=== PATIENT | female | born 1950 | race Caucasian/White ===

== ENCOUNTER 2024-03-09 14:14 | Emergency (ER) | payer MEDICARE, OTHER, SELFPAY ==
[2024-03-09 14:19] VITALS: BP 92/49
--- NOTE | 2024-03-09 15:54 | ED.MUSCINJ ---
HPI-Injury
General
Chief Complaint: Fall
Source: patient
Exam Limitations: none
Time Seen by Provider: 03/09/24 15:21
Nursing documentation reviewed up to this point in time: agreed with
History of Present Illness-Injury
Initial Injury comments:
73 yo female was adjusting her 's stair lift about 8 steps up yesterday, when she lost her balance and fell, striking head, glasses hit nose, hit left lower leg and great toe.
She has mild headache, no LOC, has mild posterior neck soreness, main concern is swelling, bruising and pain left lower leg and big toe. Not anticoagulated
Past History
Past History
ED Past Medical History: GERD and Psychiatric (anxiety)
ED Past Surgical History: and Gynecological
Social History
Tobacco: Non-smoker
Alcohol: Daily (wine)
Personal:
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
Review of Systems
Review of Systems
Allergies reviewed?: Yes
All Other Systems: ROS reviewed and negative except as documented in HPI and ROS
Respiratory: Denies trouble breathing
Cardiac: Denies chest pain
ABD/GI: Denies abdominal pain or nausea
Musculoskeletal: Reports neck pain (back ofneck is 'sore', pain left lower leg and big toe)
Skin: Reports other (bruising left lower leg)
Neurological: Reports headache; Denies dizzy, weakness or numbness
Phy Exam
Physical Exam
Physical Exam:
GENERAL: No acute distress. A&Ox3.
CONSTITUTIONAL: Afebrile.
EYES: PERRL, conjunctivae normal
Neck: Supple
ENMT: moist mucus membranes, no nasal bone tenderness, no notable facial swelling, tiny abrasion left bridge of nose from glasses.
RESPIRATORY: Regular respirations, nonlabored, lungs clear.
CARDIOVASCULAR: Regular rate and rhythm, no murmurs, no rubs.
GI: Soft, nontender, normal BS
MUSCULOSKELETAL: No spinal bony tenderness, mild posterior paracervical tenderness. Full ROM of neck. Tender and mildly swollen left lower leg anteriorly with mild ecchymosis. R great toe tender with mild ecchymosis. ROM of toe intact. Moves with
ease. Well perfused.
SKIN: Warm, dry, pink
PSYCH: Normal mood and affect. Well kept, interactive and appropriate
NEUROLOGIC: Awake, alert and oriented. No focal neurological deficits
Injury Course
Orders/Labs/Results
Orders:
Orders
03/09/24 15:43
CR Leg Tibia/fibula Left 2 Vw Urgent
Comment:
Reason For Exam: pain after fall
CR Toe(s) Min 2 Vw Left Urgent
Comment:
Reason For Exam: pain after fall
Indicate Which Toe:: Great
03/09/24 15:54
Acetaminophen [Tylenol] 1,000 mg PO NOW STA
MDM/Problems Addressed
Differential Diagnosis Includes:
contusion vs fracture toe and tib/fib
no sign of concussion
MDM/Problems Addressed:
73 yo female was adjusting her 's stair lift about 8 steps up yesterday, when she lost her balance and fell, striking head, glasses hit nose, hit left lower leg and great toe.
She has mild headache, no LOC, has mild posterior neck soreness, main concern is swelling, bruising and pain left lower leg and big toe. Not anticoagulated.
No significant headache, no LOC, no neurological deficits, not anticoagulated no sign of concussion, no indication for head CT
Xray left tib/fib read by me: no fracture
Xray left great toe read by me: no fx
Pt ambulated out with normal gait
*Critical Care Note
Total Time (30-74mins, 75-104mins- exclusive of procedures): Not Applicable
ED Attending Note
-
Portions of this chart may have been created with voice recognition software.� Occasional wrong word or��sound alike� substitutions may have occurred due to the inherent limitations of voice recognition software.
Discharge Plan
Departure
Patient Disposition: Home (Routine Discharge)
Date of Disposition: 03/09/24
Time of Disposition: 16:40
Patient with high blood pressure during this ER visit?: No
Condition: Good
Discharge Problem:
Fall down stairs, Contusion of left lower leg, Sprain of left great toe, Minor head injury without loss of consciousness
Instructions: Head Injury in Adults (DC), Contusion (DC), Toe Injury
Prescriptions:
No Action
multivitamin [Xnx-Zqozsl-Xemvw] 1 EACH tablet
1 ea PO DAILY
aspirin 81 MG tablet,chewable
81 mg PO DAILY
Zantac
1 dose PO DAILY
Referrals:
Regina Batres MD [Family Provider] - As needed
Activity Restrictions/Additional Instructions:
As we discussed, your x-ray showed nothing is broken.
Tylenol or ibuprofen as needed for pain.
Interventions
Interventions:
*Risk Screen - Suicide Last Done: 03/09/24 14:19
*General Assessment Last Done: 03/09/24 14:19
*Neglect/Abuse Screening Last Done: 03/09/24 14:19
*Nursing Disposition Last Done: 03/09/24 16:51
ED-Musculoskeletal Assessment Last Done: 03/09/24 14:43
ED- Neurological Assessment Last Done: 03/09/24 14:43
ED-Skin Assessment Last Done: 03/09/24 14:43
Discharge Date and Time
Discharge Date/Time: 03/09/24 16:52
Print Language: SINGAPOREAN
[2024-03-09] MEDS: TYLENOL 1000 MG PO (16:00)
[2024-03-09 16:51] VITALS: BP 138/71
== END 2024-03-09 16:52 | disposition home or self-care (01) ==
LOC: EMR 14:14
PROVIDERS: EMERGENCY PHYSICIAN Emergency Medicine; FAMILY PHYSICIAN Family Medicine
DX: S93.502A Unspecified sprain of left great toe, initial encounter (principal); S80.12XA Contusion of left lower leg, initial encounter; S90.111A Contusion of right great toe without damage to nail, initial encounter; S09.90XA Unspecified injury of head, initial encounter; R51.9 Headache, unspecified; M54.2 Cervicalgia; M79.89 Other specified soft tissue disorders; W10.9XXA Fall (on) (from) unspecified stairs and steps, initial encounter; K21.9 Gastro-esophageal reflux disease without esophagitis; F41.9 Anxiety disorder, unspecified
CPT/HCPCS: 99284; 73590; 73660

== ENCOUNTER 2024-03-20 13:35 | Emergency (ER) | payer MEDICARE, OTHER, SELFPAY ==
[2024-03-20 13:39] VITALS: BP 146/73
[2024-03-20] MEDS: TYLENOL 1000 MG PO (14:41)
--- NOTE | 2024-03-20 14:58 | ED.GENMED ---
History of Present Illness
<Kayc Jefferson PA-C - Last Filed: 03/21/24 14:33>
General
Chief Complaint: Musculo-Skeletal Complaint
Source: patient
Exam Limitations: none
Time Seen by Provider: 03/20/24 14:01
Nursing documentation reviewed up to this point in time: agreed with
History of Present Illness
History of Present Illness:
Patient is a 74-year-old female presenting 12 days following mechanical fall with persistent pain and swelling in her left lower leg. Patient states swelling of left anterior lower leg has started to decrease although pain has worsened and she
noticed redness of the skin prompting her visit to the emergency department. In addition�patient reports increasing swelling of her left foot. Patient denies any fevers. Patient has been able to ambulate with some pain. Patient has been taking
Tylenol/ibuprofen as directed by her primary care.
Patient denies any headaches, nausea/vomiting, visual changes, dizziness, neck pain.
Patient was seen in the emergency department here 11 days ago with negative x-ray of left tibia/fibula and left great toe.
Past History
<Kacy Jefferson PA-C - Last Filed: 03/21/24 14:33>
Past History
ED Past Medical History: GERD and Psychiatric (anxiety)
ED Past Surgical History: and Gynecological
Social History
Tobacco: Non-smoker
Alcohol: Daily (wine)
Personal:
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
Review of Systems
<Kacy Jefferson PA-C - Last Filed: 03/21/24 14:33>
Review of Systems
Allergies reviewed?: Yes
All Other Systems: ROS reviewed and negative except as documented in HPI and ROS
Phy Exam
<Kacy Jefferson PA-C - Last Filed: 03/21/24 14:33>
Physical Exam
Physical Exam:
VITALS: Mildly hypertensive, otherwise vital signs stable. Afebrile
GENERAL: Patient is well appearing, no acute distress. Nontoxic appearing
SKIN: Swelling of left anterior lower leg with overlying erythema and warmth. Edema of left foot with healing ecchymoses
HEENT: atraumatic, extraocular muscles intact, no signs of entrapment, dentition intact, no other obvious trauma
NECK: no midline tenderness, normal range of motion, no other obvious trauma
BACK: no midline tenderness, no other obvious trauma
BACK: no midline tenderness, no other obvious trauma
CHEST: no tenderness, no flail segment, no subcutaneous emphysema, no other obvious trauma
LUNGS: clear to auscultation bilaterally
CARDIOVASCULAR: regular rate and rhythm
ABDOMEN: soft, non-tender, no masses, no other obvious trauma
PELVIS: stable, no obvious injury
EXTREMITIES: Localized area of edema with overlying erythema, warm of left proximal anterior lower leg. Bony tenderness of left distal tibia. 1+ pitting edema of left foot with scattered healing ecchymoses. No tenderness at base of left fifth
metatarsal, midfoot, calcaneus. Left Achilles tendon intact. Left lower extremity neurovascular intact. Left knee and left hip atraumatic and nontender with full range of motion.
NEUROLOGIC: awake, alert x 3, no focal deficits
Course
<Kacy Jefferson PA-C - Last Filed: 03/21/24 14:33>
Orders/Labs/Results
Orders:
Orders
03/20/24 14:31
Acetaminophen [Tylenol] 1,000 mg PO NOW STA
Foot, Left 3 View [CR Foot - Left Min 3 Views] Urgent
Comment:
Reason For Exam: Left foot swelling/pain 10 days s/p fall
US Legs, Left [US Periph Venous LOWER Ext LT] Urgent
Comment:
Reason For Exam: LLE swelling, hematoma left anterior leg
03/20/24 15:02
Non Vasc Lower Ext Left US [US Non Vasc LOWER Ext LT] Urgent
Comment: hematoma vs abscess
Reason For Exam: Lower extremity swelling s/p fall
03/20/24 18:06
Cephalexin Monohydrate [Keflex] 500 mg PO NOW STA
Vital Signs
Initial and Last Documented VS:
Initial Vital Signs
Temp Pulse Resp BP Pulse Ox
97.8 F 75 16 146/73 100
03/20/24 13:39 03/20/24 13:39 03/20/24 13:39 03/20/24 13:39 03/20/24 13:39
Last Documented Vital Signs
Temp Pulse Resp BP Pulse Ox
97.8 F 68 16 127/68 99
03/20/24 13:39 03/20/24 18:12 03/20/24 13:39 03/20/24 18:12 03/20/24 18:12
<Anum Contreras MD - Last Filed: 03/20/24 17:18>
Orders/Labs/Results
Orders:
Orders
03/20/24 14:31
Acetaminophen [Tylenol] 1,000 mg PO NOW STA
Foot, Left 3 View [CR Foot - Left Min 3 Views] Urgent
Comment:
Reason For Exam: Left foot swelling/pain 10 days s/p fall
US Legs, Left [US Periph Venous LOWER Ext LT] Urgent
Comment:
Reason For Exam: LLE swelling, hematoma left anterior leg
03/20/24 15:02
Non Vasc Lower Ext Left US [US Non Vasc LOWER Ext LT] Urgent
Comment: hematoma vs abscess
Reason For Exam: Lower extremity swelling s/p fall
03/20/24 18:06
Cephalexin Monohydrate [Keflex] 500 mg PO NOW STA
Vital Signs
Initial and Last Documented VS:
Initial Vital Signs
Temp Pulse Resp BP Pulse Ox
97.8 F 75 16 146/73 100
03/20/24 13:39 03/20/24 13:39 03/20/24 13:39 03/20/24 13:39 03/20/24 13:39
Last Documented Vital Signs
Temp Pulse Resp BP Pulse Ox
97.8 F 68 16 127/68 99
03/20/24 13:39 03/20/24 18:12 03/20/24 13:39 03/20/24 18:12 03/20/24 18:12
<Kacy Jefferson PA-C - Last Filed: 03/21/24 14:33>
MDM/Problems Addressed
Differential Diagnosis Includes:
Not limited to: Foot fracture, foot sprain, ankle sprain, hematoma, infected hematoma, abscess, cellulitis, DVT, etc.
MDM/Problems Addressed:
74 year old female presenting with persisting swelling of left anterior lower leg 12 days following mechanical fall. Xrays of left tib/fib and left great toe negative for fracture at that time. No fevers or chills. Did notice worsening redness and
warmth of left anterior lower leg although reports swelling improving. Vitals stable. Patient is afebrile. Exam as above. Suspect likely hematoma although concern for abscess due to overlying erythema and warmth. Possible component of cellulitis.
Given degree of bruising of left foot will obtain xray of left foot to rule out fracture. Will check soft tissue US of left leg and venous US to r/o DVT.
Xray of left foot shows no fracture. Venous US negative for DVT of left lower extremity. Soft tissue US shows findings consistent with hematoma, less likely abscess. Following shared decision making with patient needle aspiration was performed which
showed dark red blood. No pus or purulent material to suggest abscess. High suspicion for hematoma secondary to trauma. Bulky compression wrap applied in ED. Recommend compression, elevation, and ice. Will start course of abx to cover for possible
developing cellulitis. Return precautions discussed at length w/ patient. She will monitor closely for signs of worsening infection. She will follow with PCP. Patient seen with attending physician.
Chronic conditions affecting care:
N/A
Acute Exacerbation and/or Progression of Chronic Illness:
N/A
<Kacy Jefferson PA-C - Last Filed: 03/21/24 14:33>
*Radiology
Radiology exam reviewed: preliminary read by ED provider and radiology read reviewed
*Pulse Oximetry
Patient hypoxic: no
*EKG
Interpreted by ED Provider?: NA
*Pressing Machine Operator Interpretation
Rate: Pressing Machine Operator- N/A
*Critical Care Note
Total Time (30-74mins, 75-104mins- exclusive of procedures): Not Applicable
Data Reviewed
Review of Other/Old Records Reveals: Records (Emergency department record from 03/09/2024) and Radiology Studies (X-ray of left tibia/fibula and left great toe without any evidence of acute fracture-performed on 03/09/24)
ED Attending Note
<Kacy Jefferson PA-C - Last Filed: 03/21/24 14:33>
-
Portions of this chart may have been created with voice recognition software.� Occasional wrong word or��sound alike� substitutions may have occurred due to the inherent limitations of voice recognition software.
<Anum Contreras MD - Last Filed: 03/20/24 17:18>
ED Attending Note
Patient seen and examined by attending physician: Yes
I performed the substantive portion of visit, reviewed & personally made and approve the management plan that is documented in note by myself or BHAVYA.: Yes
ED Attending Note:
I have seen and evaluated the patient with a [id number] encounter. I have spoken to the [PA] and involved in the medical history, the physical exam, medical decision making.
Evaluation and management service: agree unless noted differently below.
Results interpretation: agree unless noted differently below.
74-year-old woman presenting to the emergency department with nugent swelling. Patient states that she fell last week and noticed some swelling to the left side of her nugent. The swelling has slowly improved though she has noticed some redness and
warmth to the area surrounding the swelling. She also noticed worsening swelling down her leg and bruising to her foot. She has been taking Tylenol Motrin. No fevers or chills. On exam patient is resting comfortably. Her left lower extremity
does have a large area of hematoma that is about 4 cm x 3 cm with the surrounding erythema and warmth. She does have bruising at the medial aspect of her foot with diffuse swelling. Concern for infected hematoma versus cellulitis. After shared
decision making we will proceed with needle aspiration. Will also obtain ultrasound and x-rays. Anticipate discharge with antibiotics.
Discharge Plan
Departure
Patient Disposition: Home (Routine Discharge)
Date of Disposition: 03/20/24
Time of Disposition: 18:06
Patient with high blood pressure during this ER visit?: Yes
Condition: Good
Covid-19: Not Applicable
Discharge Problem:
Hematoma of left lower extremity
Instructions: BLOOD PRESSURE, Hematoma
Prescriptions:
New
cephalexin 500 mg capsule
500 mg PO QID 7 Days Qty: 28 0RF
No Action
multivitamin [Twe-Iafadr-Qjukn] 1 EACH tablet
1 ea PO DAILY
aspirin 81 MG tablet,chewable
81 mg PO DAILY
Zantac
1 dose PO DAILY
Referrals:
Regina Batres MD [Family Provider] - Follow up in 2-3 days
Activity Restrictions/Additional Instructions:
RETURN TO THE EMERGENCY DEPARTMENT WITH ANY FEVERS, WORSENING REDNESS, SWELLING, OR WARMTH OF LEFT LOWER EXTREMITY, INTRACTABLE PAIN, SIGNS OF INFECTION, OR ANY OTHER CONCERNS
-As discussed�your imaging suggested findings of a hematoma of your left lower leg.
-Given the redness and warmth�we did start you on a course of antibiotics. You should take this 4 times a day for the next week. The prescription has been sent to your pharmacy.
-It is very important that you continue to compress, elevate, and ice the area. You can take Tylenol as needed for pain. Closely monitor for any signs of infection
-Follow-up with your primary care provider in a few days to ensure symptoms are improving
Monitor your symptoms closely and return to the emergency department with any acute worsening/new symptoms or any signs of worsening infection
Interventions
Interventions:
*Risk Screen - Suicide Last Done: 03/20/24 13:39
*General Assessment Last Done: 03/20/24 13:39
*Neglect/Abuse Screening Last Done: 03/20/24 13:39
ED- Fall Risk Assessment Last Done: 03/20/24 18:17
*ED COVID-19 Vaccine History Last Done: 03/20/24 13:39
*Nursing Disposition Last Done: 03/20/24 18:17
ED-Musculoskeletal Assessment Last Done: 03/20/24 14:45
Discharge Date and Time
Discharge Date/Time: 03/20/24 18:17
Print Language: ROMANIAN
[2024-03-20 18:12] VITALS: BP 127/68
[2024-03-20] MEDS: KEFLEX 500 MG PO (18:12)
== END 2024-03-20 18:17 | disposition home or self-care (01) ==
LOC: EMR 13:35
PROVIDERS: EMERGENCY PHYSICIAN Student in an Organized Health Care Education/Training Program; FAMILY PHYSICIAN Family Medicine
DX: S80.12XA Contusion of left lower leg, initial encounter (principal); S90.32XA Contusion of left foot, initial encounter; W19.XXXA Unspecified fall, initial encounter; K21.9 Gastro-esophageal reflux disease without esophagitis
CPT/HCPCS: 99284; 73630; 76882; 93971